=== PATIENT | female | born 1940 | race African-American/Black ===

== ENCOUNTER → 2017-05-03 | Outpatient (CLI) | payer MEDICARE ==
[~2017-05-03] MED LIST: ALPRAZOLAM0.5 MG PO; AMOXICILLIN500 M1 PO; ASPIRIN81 M2 PO; BUMEX2 MG PO; CARVEDILOL12.5 MG PO; CITALOPRAM HBR10 MG PO; COQ-10100 MG PO; COZAAR25 MG PO; DUONEB 2.5-0.5 M3 ML NEB; ERGOCALCIF50000 UNIT PO; GUAIFENESIN-CO480 ML PO; HUMULIN R100 U/ML SUBQ; KCL PO; LEVEMIR100 U/ML SQ; NEURONTIN300 MG PO; NORCO1 TAB 10/3 PO; PLAVIX PO; PRILOSEC20 MG PO; TUMS500 M1 PO; ZOCOR PO
--- NOTE | ~2017-05-03 | CT57 ---
[facility] A Service of [facility] & [facility] [place] RADIOLOGY TEXT RESULTS PATIENT: ZAHIDA THOMSON CAG LOCATION: CCAT : 38 UNIT #: [id number] AGE: [address]: Sarai Hatch SEX: F ORDER DR: [id number] [facility] [address] [place], [place] [address] [id number] O MR#: [id number] Acc #: [id number] NAME: ZAHIDA THOMSON : 1940 SEX: F STUDY DATE/TIME: 05/03/2017 11:34 UNIT: [facility] ROOM: STUDY DESCRIPTION: CT Chest Wo Cont Attending Physician: Sarai Hatch A.P.R.N. Referring Physician: Sarai Hatch A.P.R.N. Ordering Physician: Sarai Hatch A.P.R.N. Primary Care Physician: Anshu Tobin M.D. MEDICAL IMAGING REPORT This report is preliminary unless electronic signature is present EXAM CT chest HISTORY Pulmonary nodule. Restaging. Sleep apnea. TECHNIQUE CT of the chest without contrast. Coronal and sagittal reconstructions were obtained. This CT exam was performed with one or more of the following radiation dose reduction techniques: automatic exposure control, adjustment of mA and/or kV according to patient size, and iterative reconstruction. COMPARISON CT chest dated 03/25/2017, 03/28/2016 and 03/28/2015. FINDINGS No suspicious pulmonary nodule. There are several small micronodules that are unchanged from at least 2013 consistent with benign granulomas. There are no new or suspicious pulmonary findings. Central airways are patent. There is background COPD. Minimal linear atelectasis or scarring is noted in both lung bases. There is a large multinodular thyroid displacing the trachea towards the right. This is unchanged. The thyroid extends into the superior mediastinum. No pericardial or pleural effusion. There is postsurgical change or CABG. The main pulmonary artery is dilated measuring at least 3.7 cm indicative of a component of pulmonary arterial hypertension. The heart is enlarged. Limited images of the upper abdomen were obtained. There are no acute STS. [facility] A Service of [facility] & [facility] [place] RADIOLOGY TEXT RESULTS PATIENT: ZAHIDA THOMSON LOCATION: [facility] : 38 UNIT #: [id number] AGE: [address]: Sarai Hatch SEX: F ORDER DR: findings. IMPRESSION 1. No new findings in the chest. 2. Small pulmonary nodules are all unchanged from at least 2014 consistent with benign granulomas. 3. COPD. 4. Enlarged main pulmonary artery suggesting a component of pulmonary arterial hypertension. Dictated by... Easton Gomez M.D. THIS IS AN ELECTRONICALLY VERIFIED REPORT Easton Gomez M.D. at 05/05/2017 1:27 PM GISELA/dain TD: 05/05/2017 12:57 JOB #: [id number] MEDICAL IMAGING REPORT Page 1 of 1 COPY
== END | disposition home or self-care (01) ==
LOC: CCAT 11:00
DX: R91.1 Solitary pulmonary nodule (principal); R93.8 Abnormal findings on diagnostic imaging of other specified body structures; G47.33 Obstructive sleep apnea (adult) (pediatric); R91.8 Other nonspecific abnormal finding of lung field; J44.9 Chronic obstructive pulmonary disease, unspecified; I77.89 Other specified disorders of arteries and arterioles
CPT/HCPCS: 71250